=== PATIENT | female | born 1990 | race American Indian/Alaskan Native ===

== ENCOUNTER 2018-02-06 13:11 | Outpatient (CLI) | END 2018-02-06 15:50 | disposition home or self-care (01) ==

== ENCOUNTER 2018-02-20 10:41 | Outpatient (CLI) | END 2018-02-20 12:56 | disposition home or self-care (01) ==

== ENCOUNTER 2018-03-17 18:10 | Inpatient (IN) | END 2018-03-21 12:25 | disposition home or self-care (01) | DRG 766 ==